=== PATIENT | female | born 1995 | race Caucasian/White ===

== ENCOUNTER 2017-01-07 11:19 | Emergency (ER) | payer MEDICAID ==
[2017-01-07 13:24] VITALS: BP 126/73
--- NOTE | 2017-01-07 15:02 | UC ---
Throat Pain/Nasal Garry HPI - HPI Summary HPI Summary: FOUR DAYS OF COUGH AND CONGESTION. NO FEVER. PRODUCTIVE COUGH WITH YELLOW SPUTUM. - History of Current Complaint Chief Complaint: UCGeneralIllness Stated Complaint: COUGH,CONGEST Time Seen by Provider: 01/07/17 13:51 Hx Obtained From: Patient Hx Last Menstrual Period: 12/13/16 Onset/Duration: Gradual Onset, Lasting Days, Still Present Severity: Moderate Cough: Productive Associated Signs & Symptoms: Positive: Hoarseness, Nasal Discharge - Epiglottits Risk Factors Epiglottis Risk Factors: Negative - Allergies/Home Medications Allergies/Adverse Reactions: Allergies Allergy/AdvReac Type Severity Reaction Status Date / Time Shrimp Flavor Allergy See Comment Verified 01/07/17 13:17 Home Medications: Home Medications [email or web address] ER TAB [Mucinex*] 2 tab PO PRN 01/07/17 [History] PMH/Surg Hx/FS Hx/Imm Hx Previously Healthy: Yes - Surgical History Surgical History: Yes Surgery Procedure, Year, and Place: wisdom teeth - Family History Known Family History: Negative: Cardiac Disease, Hypertension, Diabetes, Blood Disorder - Social History Occupation: Employed Full-time Lives: With Family Alcohol Use: None Substance Use Type: None Smoking Status (MU): Never Smoked Tobacco - Immunization History Most Recent Influenza Vaccination: not utd Review of Systems Constitutional: Negative Skin: Negative Eyes: Negative ENT: Nasal Discharge Respiratory: Cough Cardiovascular: Negative Gastrointestinal: Negative Genitourinary: Negative Motor: Negative Neurovascular: Negative Musculoskeletal: Negative Neurological: Negative Psychological: Negative All Other Systems Reviewed And Are Negative: Yes Physical Exam Triage Information Reviewed: Yes Appearance: Well-Appearing, No Pain Distress, Well-Nourished Vital Signs: Initial Vital Signs Temp 98.6 F 01/07/17 13:19 Pulse 57 01/07/17 13:19 Resp 18 01/07/17 13:19 BP 126/73 01/07/17 13:19 Pulse Ox 100 01/07/17 13:19 Vital Signs Reviewed: Yes Eye Exam: Normal Eyes: Positive: Conjunctiva Clear ENT Exam: Normal ENT: Positive: Normal ENT inspection, Hearing grossly normal, Pharynx normal, TMs normal Dental Exam: Normal Neck exam: Normal Neck: Positive: Supple, Nontender, No Lymphadenopathy Respiratory Exam: Normal Respiratory: Positive: Chest non-tender, Lungs clear, Normal breath sounds, No respiratory distress, No accessory muscle use Cardiovascular Exam: Normal Cardiovascular: Positive: RRR, No Murmur, Pulses Normal Abdominal Exam: Normal Abdomen Description: Positive: Nontender Musculoskeletal Exam: Normal Musculoskeletal: Positive: Strength Intact, ROM Intact Neurological Exam: Normal Psychological Exam: Normal Psychological: Positive: Normal Response To Family Skin Exam: Normal Throat Pain/Nasal Course/Dx - Differential Dx/Diagnosis Differential Diagnosis/HQI/PQRI: Influenza, URI Provider Diagnoses: UPPER RESPIRATORY INFECTION. BRONCHOSPASM Discharge - Discharge Plan Condition: Stable Disposition: HOME Prescriptions: Albuterol HFA INHALER* [Ventolin HFA Inhaler*] 1 - 2 puff INH Q4H PRN #1 mdi PRN Reason: Wheezing Benzonatate CAP* [Tessalon CAP*] 100 mg PO TID PRN #15 cap PRN Reason: Cough Patient Education Materials: Upper Respiratory Infection (ED) Referrals: Ashley Steen DO [Primary Care Provider] -
== END 2017-01-07 15:17 | disposition home or self-care (01) ==
LOC: UCEAST 11:19
DX: J98.01 Acute bronchospasm (principal); J06.9 Acute upper respiratory infection, unspecified
CPT/HCPCS: 99212; G0463